=== PATIENT | female | born 1990 | race Caucasian/White ===

== ENCOUNTER 2023-12-18 05:30 | Inpatient (IN) | payer BC ==
[2023-12-18 06:18] VITALS: BMI 30.7
[2023-12-18] MEDS ORDERED: fentaNYL 50 mcg/mL 1 mL Vial SLOW IVP PRN (06:22)
[2023-12-18] MEDS ORDERED: Ondansetron PF 4 MG/2 ML Vial IVP PRN ×3 (06:22→20:40)
[2023-12-18] MEDS ORDERED: Promethazine HCl 25 MG/ML VIAL IM PRN ×2 (06:22→08:03)
[2023-12-18] MEDS ORDERED: hydrALAZINE 20 MG/ML VIAL SLOW IVP PRN ×2 (06:22→20:40)
[2023-12-18] MEDS ORDERED: HYDROcodone/Acetaminophen 5/325 mg Tablet PO PRN ×4 (06:22→20:40)
[2023-12-18] MEDS ORDERED: Ibuprofen 800 MG TAB PO PRN (06:22)
[2023-12-18] MEDS ORDERED: Lidocaine 1% (PF) 30 ML VIAL SC PRN (06:22)
[2023-12-18] MEDS ORDERED: Misoprostol 200 MCG TAB PR PRN (06:22)
[2023-12-18] MEDS ORDERED: Oxytocin 30 units/NS 500 ML 500 ML IV SCH ×3 (06:30→20:40)
[2023-12-18] MEDS ORDERED: Lactated Ringer's 1,000 ML IV SCH (06:30)
[2023-12-18 06:56] LABS: Hematocrit 33.2 % (34.9-44.5); Hemoglobin 11.2 g/dL (12.0-15.5); Mean Corpuscular HGB CONC 33.7 g/dL (32.0-36.0); Mean Corpuscular Hemoglobin 28.3 pg (27.0-33.0); Mean Corpuscular Volume 83.8 fl (81.6-98.3); Mean Platelet Volume 8.8 fl (7.4-10.4); Platelet Count 222 10x3/uL (150-450); RBC Distribution Width 15.9 % (11.5-14.5); Red Blood Cell (RBC) Count 3.96 10x6/uL (3.90-5.03); White Blood Cell (WBC) Count 11.8 10x3/uL (3.5-10.5)
[2023-12-18 07:24] LABS: HBsAg Index 0.22 S/CO (0-0.99); Hep B Surf Ag - L&D Non-Reactive S/CO (NonReactive)
[2023-12-18 07:25] LABS: Syphilis Antibody Nonreactive (Nonreactive); Syphilis Antibody Index 0.05 S/CO (<1.00 Non-Reactive)
[2023-12-18] MEDS ORDERED: Naloxone HCl 0.4 mg/ml Vial IVP PRN ×2 (08:03)
[2023-12-18] MEDS ORDERED: Moisturizing Cream (Eucerin) 113 GM JAR TOP PRN (08:03)
[2023-12-18] MEDS ORDERED: Lactated Ringer's 500 ML IV PRN (08:03)
[2023-12-18] MEDS ORDERED: diphenhydrAMINE 50 MG/ML VIAL IVP PRN (08:03)
[2023-12-18] MEDS ORDERED: ePHEDrine Sulfate 50 MG/10 ML VIAL SLOW IVP PRN (08:03)
[2023-12-18] MEDS ORDERED: Acetaminophen 325 MG TAB PO PRN (08:03)
[2023-12-18] MEDS: fentaNYL/Ropivacaine Epidural 100 ML ONE (08:09)
[2023-12-18] MEDS ORDERED: Communication Order-Pharmacy FS SCH (08:15)
[2023-12-18] MEDS ORDERED: fentaNYL 2 mcg/Ropivacaine 0.2% Epidural 100 ML CADD EPIDURAL SCH (08:15)
[2023-12-18] MEDS ORDERED: Misoprostol 200 MCG TAB VAG PRN (20:40)
[2023-12-18] MEDS ORDERED: Boostrix 0.5 ML (Tdap) VIAL (>/=7 yrs of age) IM ONE (20:40)
[2023-12-18] MEDS ORDERED: Milk Of Magnesia 30 ML UDCUP PO PRN (20:40)
[2023-12-18] MEDS ORDERED: Benzocaine-Menthol 82.5 ML CAN TOP PRN (20:40)
[2023-12-18] MEDS ORDERED: Lanolin Ointment 7 GM TUBE TOP PRN (20:40)
[2023-12-18] MEDS ORDERED: Bisacodyl 10 MG SUPP PR PRN (20:40)
[2023-12-18] MEDS: Docusate 100 MG CAP PO SCH (21:30)
[2023-12-18] MEDS: Ibuprofen 800 MG TAB PO SCH (21:30)
[2023-12-19] MEDS: Ferrous Sulfate 325 MG TAB PO SCH (08:13)
[2023-12-19] MEDS: Prenatal Vitamin 1 TAB PO SCH (08:20)
[2023-12-19 17:43] VITALS: BP 103/58; TEMP 98.4
== END 2023-12-19 19:25 | disposition home or self-care (01) | DRG 807 ==
LOC: CSHLD 05:40 → CSHPP 20:54
PROVIDERS: ADMIT Obstetrics & Gynecology; ATTEND Obstetrics & Gynecology
PROC: 10E0XZZ Delivery of Products of Conception, External Approach (ICD-10-PCS; principal; 2023-12-18)
PROC: 0HQ9XZZ Repair Perineum Skin, External Approach (ICD-10-PCS; 2023-12-18)
PROC: 10907ZC Drainage of Amniotic Fluid, Therapeutic from Products of Conception, Via Natural or Artificial Opening (ICD-10-PCS; 2023-12-18)
DX: O70.0 First degree perineal laceration during delivery (principal); Z37.0 Single live birth; Z3A.39 39 weeks gestation of pregnancy
CPT/HCPCS: 36415; 51702; 85027; 86780; 86850; 86900; 86901; 87340